=== PATIENT | female | born 1950 | race Caucasian/White ===

== ENCOUNTER 2016-08-14 08:37 | Day surgery (SDC) | payer BC ==
--- NOTE | 2016-08-14 08:15 | HP ---
DATE OF SURGERY: 08/14/2016 HISTORY OF PRESENT ILLNESS: The patient is a 66 year-old with nausea all the time even on cereal, no specific food trigger. She has chronic pain in her back. History of cholecystectomy in the past. History of ulcers in the past. I feel she needed screening colonoscopy as the last was several years ago. 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 MEDICATIONS: Per the patient's medication list. ALLERGIES: CODEINE, SOY. PAST SURGICAL HISTORY: Back surgery, sinus surgery, hemorrhoidectomy, cholecystectomy, carpal tunnel, back surgery with some rods and screws and grafts back in 2004. She had tubal with removal of a tube and ovary in the past. Appendectomy, cyst on her ovary in the past. She had stimulator implanted in the past. Right and left foot surgery in the past as well. FAMILY HISTORY: Mother with pancreatic cancer. Sister with stomach problems. Cousin who had colon cancer. Heart disease, cancer, hypertension. SOCIAL HISTORY: Two packs per week. Denies alcohol abuse. REVIEW OF SYSTEMS: Twelve systems reviewed per admission assessment. PHYSICAL EXAMINATION: GENERAL: No acute distress. HEENT: Sclerae nonicteric. NECK: No JVD. CHEST: Equal excursion, nonlabored breathing. CVS: Regular rate and rhythm. ABDOMEN: Soft, some mild tenderness right upper quadrant. No peritoneal signs. EXTREMITIES: No significant edema. NEURO: Alert, oriented, moving extremities symmetrically. No gross motor deficits noted. IMPRESSION: Nausea, right upper quadrant pain of unclear etiology. It could be anything from gastritis, duodenitis, peptic ulcer disease versus colon etiology. She is in need of follow up screening colonoscopy as well as upper endoscopy for further evaluation. Will proceed with EGD and colonoscopy as an outpatient. She was shown the risk sheet and explained the procedure in detail but not limited to bleeding or infection, small risk of bowel injury or perforation possibly requiring open procedure, small risk of missed or nondiagnosis or incomplete exam possibly requiring barium enema, other studies or procedures, general risk of anesthesia or sedation but not limited, possibility of inability to diagnose the etiology of her symptoms possibly requiring other studies or follow up CT scan or other work up or referral. She understands and agrees to the planned procedure and will proceed with outpatient EGD and colonoscopy.
[~2016-08-14 08:37] MED LIST: DIPRIVAN 200 MG/20 ML IV ONE; Ketamine HCl 50 MG/ML IV ONE
[2016-08-14] MEDS ORDERED: Lactated Ringers 1,000 ML IV SCH (09:30)
[2016-08-14] MEDS ORDERED: Lactated Ringers 1,000 ML IV ONE (11:22)
[2016-08-14 14:19] VITALS: BP 151/90; O2SAT 98
[2016-08-14 14:22] VITALS: PULSE 65
--- NOTE | 2016-08-15 12:32 | OP ---
SURGERY DATE/TIME: 08/14/2016 1042 PREOPERATIVE DIAGNOSES: 1) History of nausea, right upper quadrant epigastric pain. 2) Need for screening colonoscopy. POSTOPERATIVE DIAGNOSES: 1) Pyloric channel area ulcer. 2) Erosive gastritis. 3) Very short segment of possible distal gastroesophagitis. 4) Poor right colon prep limiting the exam. 5) Mild diverticulosis. 6) Small raised lesions versus early hyperplastic lesions versus early hyperplastic polyps sigmoid colon and rectum. 7) Mild diverticulosis. 8) Small internal and external hemorrhoids. PROCEDURES: 1) EGD with cold biopsy of small bowel to evaluate for sprue. 2) Cold biopsy of the antrum to evaluate for Helicobacter pylori. 3) Cold biopsy of distal esophagus to evaluate for distal esophagitis. 4) Colonoscopy to cecum with hot biopsy and removal of small raised lesion sigmoid colon and rectum. Small raised lesion versus hyperplastic lesion or early polyp path pending. SURGEON: Dr. Pablo Simpson. ANESTHESIA: MAC. ESTIMATED BLOOD LOSS: Minimal. INDICATIONS: As noted above. Risks and benefits explained in detail and not limited to and consent obtained. DESCRIPTION OF PROCEDURE AND FINDINGS: The patient was taken to the operating room. MAC anesthesia introduced. After official time out and no disagreement with planned procedure, bite block positioned. Video gastroscope easily passed down the esophagus. The gastroesophageal junction about 40 cm. Through the patent pylorus to the junction of the second and third portion of the duodenum. On withdrawal of the scope duodenum and duodenal bulb unremarkable. Back in the pyloric channel area there was evidence of a superficial ulcer as well as some erosive gastritis in the stomach itself chronic in nature. Cold biopsy taken to evaluate for Helicobacter pylori in the antrum. Small bowel had been biopsied for celiac sprue. On retroflex there did not appear to be any evidence of any large hiatal hernia. There was just a slight weakness versus normal variation of the gastroesophageal junction. The scope was straightened. Mild chronic inflammation short segment of distal esophagus cold biopsy taken. Good hemostasis noted. The remainder of the esophagus grossly unremarkable. There were some tertiary contractions but no signs of any obvious mucosal lesions or narrowing. The scope is withdrawn. The patient tolerated this portion of the procedure well. The gastroesophageal junction was 40 cm. The scope is withdrawn. Attention is then turned to colonoscopy. .Digital rectal exam did not reveal any rectal masses. She did have some internal and external hemorrhoids. Video colonoscope inserted and passed up through the tortuous sigmoid, descending, transverse colon. With external pressure the scope was able to be passed around to ascending colon, cecum, appendiceal orifice and valve were well visualized. Confirming location with palpation on right lower quadrant. Prep overall was somewhat poor in the right colon. There is some semisolid liquidy stool limiting the exam for potential small lesions. It was suction irrigated as well as possible but did limit the exam. Scope slow and carefully withdrawn. There were no signs of any large polyps, masses or obstructing lesions, did have some mild diverticulosis in the left colon. Did have small internal and external hemorrhoids. Otherwise small vague raised lesions versus hyperplastic lesions in the sigmoid colon and rectum that were removed with hot biopsy forceps with brief bursts of cautery. Good hemostasis noted. The scope is withdrawn. The patient tolerated the procedure well. There were no immediate complications. Findings discussed with the family out in the waiting area.
== END 2016-08-14 12:40 | disposition home or self-care (01) ==
LOC: SDC 08:37
PROVIDERS: ATTEND Surgery
PROC: 0DB88ZX Excision of Small Intestine, Via Natural or Artificial Opening Endoscopic, Diagnostic (ICD-10-PCS; principal; 2016-08-14)
PROC: 0DB38ZX Excision of Lower Esophagus, Via Natural or Artificial Opening Endoscopic, Diagnostic (ICD-10-PCS; 2016-08-14)
PROC: 0DB68ZX Excision of Stomach, Via Natural or Artificial Opening Endoscopic, Diagnostic (ICD-10-PCS; 2016-08-14)
PROC: 0DBN8ZX Excision of Sigmoid Colon, Via Natural or Artificial Opening Endoscopic, Diagnostic (ICD-10-PCS; 2016-08-14)
PROC: 0DBP8ZX Excision of Rectum, Via Natural or Artificial Opening Endoscopic, Diagnostic (ICD-10-PCS; 2016-08-14)
DX: K25.9 Gastric ulcer, unspecified as acute or chronic, without hemorrhage or perforation (principal); K29.60 Other gastritis without bleeding; K20.9 Esophagitis, unspecified; Z12.11 Encounter for screening for malignant neoplasm of colon; K57.90 Diverticulosis of intestine, part unspecified, without perforation or abscess without bleeding; K63.9 Disease of intestine, unspecified; D12.5 Benign neoplasm of sigmoid colon; K62.1 Rectal polyp; K64.4 Residual hemorrhoidal skin tags; K64.8 Other hemorrhoids
CPT/HCPCS: 00740; 00810; 36415; 88305; J2704